=== PATIENT | female | born 1980 | race Caucasian/White ===

== ENCOUNTER 2020-10-22 08:02 | Outpatient (REF) | payer OTHER, SELFPAY ==
--- NOTE | ~2020-10-22 | US_ITS ---
Targeted right breast ultrasound is described in single combined report along with the diagnostic mammography under accession number: [id number].
--- NOTE | ~2020-10-22 | MM_ITS ---
EXAMINATION: MM DIAGNOSTIC DIGITAL BREAST TOMOSYNTHESIS, BILATERAL US DIAGNOSTIC ULTRASOUND BREAST, RIGHT CLINICAL INFORMATION: 40-year-old with intermittent waxing and waning tender palpable fullness upper outer right breast with some extension towards the right subareolar region. Patient breast feeding, approximately 5 months. Prior benign right breast biopsy upper outer quadrant 2016 (Benign breast tissue with stromal fibrosis and fibroadenomatous change). The lifetime risk of breast cancer based on the Tyrer-Cuzick Model is 12%. COMPARISON: Mammography: 01/27/2019, 01/13/2016, 01/10/2016; targeted right breast ultrasound 01/27/2019, 01/10/2016, ultrasound guided right biopsy 01/13/2016. TECHNIQUE: Digital breast tomosynthesis is performed in both the craniocaudal and mediolateral oblique views along with computer-aided detection (CAD). Synthesized 2D images are generated from the tomosynthesis. Ultrasound right breast is targeted to the area of clinical concern outer breast. Grayscale imaging and color Doppler are performed without and with harmonics. Patient is able to point to the area of concern at time of imaging. FINDINGS: The breasts are extremely dense, which lowers the sensitivity of mammography (ACR BI-RADS breast composition Category d). There are no significant masses, abnormal calcifications, or other abnormalities. There is biopsy clip marker mid upper outer quadrant corresponding to the benign biopsy 2016. There is no skin thickening or coarsening of the Saad's ligaments. No focal duct dilatation. The axilla are unremarkable. Ultrasound right breast demonstrates no cystic or solid mass or architectural abnormality. No focal duct dilatation. No skin thickening or edema tracking in soft tissue planes. The lesion sampled in 2016 is not identified. Results are discussed with the patient at time of visit. Patient should be managed based on the clinical impression. If clinically indicated, further evaluation may be considered with surgical consult. Decision to proceed with biopsy should be based on clinical grounds and degree of clinical concern. MM/MM tomosynthesis diagnostic BI IMPRESSION: 1. No mammographic evidence of malignancy or focal inflammatory changes. 2. Unremarkable right breast ultrasound. ASSESSMENT: BI-RADS 1: Negative RECOMMENDATION: 1. Patient should be managed based on the clinical impression. If clinically indicated, further evaluation may be considered with surgical consult. Decision to proceed with biopsy should be based on clinical grounds and degree of clinical concern. 2. Otherwise, routine annual screening mammography, beginning age 40, or earlier as clinical risk factors warrant. This patient's information was entered into a reminder system with a target due date for their next mammogram.
== END 2020-10-22 08:03 | disposition home or self-care (01) ==
LOC: HO.MAMMO 08:02
PROVIDERS: Visit Provider Obstetrics & Gynecology
DX: N64.4 Mastodynia (principal)
CPT/HCPCS: 76642; 77062; 77066

== ENCOUNTER 2021-01-17 08:37 | Outpatient (REF) | payer OTHER, SELFPAY ==
--- NOTE | ~2021-01-17 | US_ITS ---
EXAMINATION: US THYROID CLINICAL INFORMATION: Follow up thyroid nodules. Ultrasound-guided thyroid biopsy 01/15/2020. COMPARISON: None. TECHNIQUE: Linear transducer grayscale and color Doppler examination with attention to the region of the thyroid. FINDINGS: SIZE: Measurements of the thyroid lobes and nodules are given in sagittal, anteroposterior and transverse dimensions respectively. Right Thyroid Lobe: 5.2 x 1.5 x 1.6 cm, volume 6.5 mL. Parenchyma: The gland echotexture is homogeneous. Thyroid vascularity is normal. Left Thyroid Lobe: 5.0 x 1.5 x 1.7 cm, volume 6.7 mL. Parenchyma: The gland echotexture is homogeneous. Thyroid vascularity is normal. Isthmus: 0.2 cm in maximum AP dimension. Estimated total number of nodules greater than or equal to 1 cm: 1. Nutritional Yeast Supervisor nodules are described as follows: 1. Location: Right midpole/lower pole. Size: 1.2 x 0.6 x 0.4 cm, volume 0.15 mL. Nodule characteristics: Composition: Solid (2). Echogenicity: Hypoechoic (2). Shape: Not taller than wide (0). Margins: Ill-defined (0). Echogenic Foci: None (0). ACR TI-RADS total points: 4 ACR TI-RADS category: 4 NODES: No lymphadenopathy is seen in the tissue surrounding the thyroid gland. US/US thyroid IMPRESSION: Solitary thyroid nodule mid to lower pole right lobe. Recommend annual follow-up. ACR TI-RADS RECOMMENDATION REFERENCE: Ultrasound-guided fine-needle aspiration, followup ultrasound, no further follow up. * TR1 (0 point) and TR 2 (2 points): No FNA or follow up * TR3 (3 points): FNA if more than or equal to 2.5 cm in maximum dimension, followup ultrasound in 1, 3 and 5 years if 1.5 to 2.4 cm in maximum dimension. * TR4 (4-6 points): FNA if more than or equal to 1.5 cm in maximum dimension, followup ultrasound in 1, 2, 3 and 5 years if 1 to 1.4 cm in maximum dimension. * TR5 (more than or equal to 7 points): FNA if more than or equal to 1 cm in maximum dimension, followup ultrasound every year for 5 years if 0.5 to 0.9 cm in maximum dimension. * TR3, TR4 or TR5 nodules that are below the size threshold for follow up receive no follow up.
== END 2021-01-17 08:38 | disposition home or self-care (01) ==
LOC: HO.US 08:37
PROVIDERS: PCP Physician Assistant; Visit Provider Internal Medicine Endocrinology, Diabetes & Metabolism
DX: E04.1 Nontoxic single thyroid nodule (principal)
CPT/HCPCS: 76536

== ENCOUNTER → 2021-01-19 09:16 | Outpatient (BNVA) | payer OTHER, SELFPAY | PROVIDERS: Visit Provider Internal Medicine Endocrinology, Diabetes & Metabolism | DX: E04.1 Nontoxic single thyroid nodule (principal) | CPT/HCPCS: 99212 ==

== ENCOUNTER → 2021-10-12 14:31 | Outpatient (BNVA) | payer OTHER, SELFPAY | PROVIDERS: Visit Provider Surgery | DX: R22.2 Localized swelling, mass and lump, trunk (principal) | CPT/HCPCS: 99202 ==

== ENCOUNTER 2022-01-18 15:16 | Outpatient (REF) | payer OTHER, SELFPAY ==
--- NOTE | ~2022-01-18 | US_ITS ---
EXAMINATION: US THYROID CLINICAL INFORMATION: Nontoxic single thyroid nodule. COMPARISON: Thyroid ultrasound 01/17/2021. Ultrasound-guided thyroid biopsy 01/15/2020. CT cervical spine 08/27/2019. TECHNIQUE: Linear transducer grayscale and color Doppler examination with attention to the region of the thyroid. FINDINGS: SIZE: Measurements of the thyroid lobes and nodules are given in sagittal, anteroposterior and transverse dimensions respectively. Right Thyroid Lobe: 5.6 x 1.2 x 1.4 cm, volume 4.9 mL. Previously 5.2 x 1.5 x 1.6 cm, volume 6.5 mL. Parenchyma: The gland echotexture is homogeneous. Thyroid vascularity is increased. Left Thyroid Lobe: 4.9 x 1.4 x 1.4 cm, volume 5.0 mL. Previously 5.0 x 1.5 x 1.7 cm, volume 6.7 mL. Parenchyma: The gland echotexture is homogeneous. Thyroid vascularity is increased. Isthmus: 0.1 cm in maximum AP dimension. Previously 0.2 cm. Estimated total number of nodules greater than or equal to 1 cm: 1. Soiled Linen Distributor nodules are described as follows: 1. Location: Right lateral mid pole. Size: 1.0 x 0.6 x 0.4 cm, volume 0.12 mL. Previously: 1.2 x 0.6 x 0.4 cm, volume 0.15 mL. Nodule characteristics: Composition: Solid/almost completely solid (2). Echogenicity: Hypoechoic (2). Shape: Taller than wide (3). Margins: Ill-defined (0). Echogenic Foci: None (0). ACR TI-RADS total points: 7 Previous: 4 ACR TI-RADS category: 5 Previous: 4 Significant change in size (>/= 20% in 2 dimensions and minimal increase of 2 mm or 50% or greater increase in volume): No Change in features: No Change in ACR TI-RADS risk category: No NODES: No lymphadenopathy is seen in the tissue surrounding the thyroid gland. US/US thyroid IMPRESSION: 1. A continued stable right thyroid lobe nodule is seen, as detailed. Recommend continued thyroid ultrasound surveillance. 2. There is increased thyroid vascularity, which can be associated with thyroiditis. ACR TI-RADS RECOMMENDATION REFERENCE: Ultrasound-guided fine-needle aspiration, followup ultrasound, no further follow up. * TR1 (0 point) and TR 2 (2 points): No FNA or follow up * TR3 (3 points): FNA if more than or equal to 2.5 cm in maximum dimension, followup ultrasound in 1, 3 and 5 years if 1.5 to 2.4 cm in maximum dimension. * TR4 (4-6 points): FNA if more than or equal to 1.5 cm in maximum dimension, followup ultrasound in 1, 2, 3 and 5 years if 1 to 1.4 cm in maximum dimension. * TR5 (more than or equal to 7 points): FNA if more than or equal to 1 cm in maximum dimension, followup ultrasound every year for 5 years if 0.5 to 0.9 cm in maximum dimension. * TR3, TR4 or TR5 nodules that are below the size threshold for follow up receive no follow up.
[2022-01-18 16:41] LABS: Free T4 (Free Thyroxine) 1.05 ng/dL (0.71-1.85); Thyroid Stimulating Hormone 0.64 uIU/mL (0.32-4.0)
== END 2022-01-18 15:17 | disposition home or self-care (01) ==
LOC: HO.US 15:16
PROVIDERS: Absent Provider Internal Medicine Endocrinology, Diabetes & Metabolism; Visit Provider Internal Medicine
DX: E04.1 Nontoxic single thyroid nodule (principal)
CPT/HCPCS: 36415; 76536; 84439; 84443

== ENCOUNTER → 2022-03-22 11:57 | Outpatient (BNVA) | payer OTHER, SELFPAY | PROVIDERS: Visit Provider Physician Assistant | DX: S09.90XA Unspecified injury of head, initial encounter (principal); Y04.2XXA Assault by strike against or bumped into by another person, initial encounter | CPT/HCPCS: 70450; 99204 ==

== ENCOUNTER → 2022-03-24 09:58 | Outpatient (BNVA) | payer OTHER, SELFPAY | PROVIDERS: Visit Provider Internal Medicine | DX: S09.90XA Unspecified injury of head, initial encounter (principal); Y04.2XXA Assault by strike against or bumped into by another person, initial encounter; H53.149 Visual discomfort, unspecified; M54.2 Cervicalgia | CPT/HCPCS: 99214 ==

== ENCOUNTER → 2022-03-29 09:38 | Outpatient (BNVA) | payer OTHER, SELFPAY | PROVIDERS: Visit Provider Internal Medicine Endocrinology, Diabetes & Metabolism | DX: O99.282 Endocrine, nutritional and metabolic diseases complicating pregnancy, second trimester (principal); E04.1 Nontoxic single thyroid nodule; Z3A.17 17 weeks gestation of pregnancy | CPT/HCPCS: 99212 ==

== ENCOUNTER → 2022-03-29 11:31 | Outpatient (BNVA) | payer OTHER, SELFPAY | PROVIDERS: Visit Provider Physician Assistant | DX: S09.90XA Unspecified injury of head, initial encounter (principal); Y04.2XXA Assault by strike against or bumped into by another person, initial encounter; F07.81 Postconcussional syndrome | CPT/HCPCS: 99213 ==

== ENCOUNTER → 2022-04-07 11:25 | Outpatient (BNVA) | payer OTHER, SELFPAY | PROVIDERS: Visit Provider Physician Assistant | DX: S09.90XD Unspecified injury of head, subsequent encounter (principal); Y04.2XXD Assault by strike against or bumped into by another person, subsequent encounter; F07.81 Postconcussional syndrome; R51.9 Headache, unspecified; M25.531 Pain in right wrist | CPT/HCPCS: 73110; 73130; 99215 ==

== ENCOUNTER → 2022-04-20 11:40 | Outpatient (BNVA) | payer OTHER, SELFPAY | PROVIDERS: Visit Provider Physician Assistant | DX: S09.90XD Unspecified injury of head, subsequent encounter (principal); Y04.2XXD Assault by strike against or bumped into by another person, subsequent encounter | CPT/HCPCS: 99214 ==

== ENCOUNTER → 2022-05-19 11:46 | Outpatient (BNVA) | payer OTHER, SELFPAY | PROVIDERS: Visit Provider Physician Assistant | DX: F07.81 Postconcussional syndrome (principal) | CPT/HCPCS: 99214 ==

== ENCOUNTER → 2022-05-31 13:58 | Outpatient (BNVA) | payer OTHER, SELFPAY | PROVIDERS: Visit Provider Physician Assistant | DX: F07.81 Postconcussional syndrome (principal) | CPT/HCPCS: 99214 ==

== ENCOUNTER → 2022-06-01 13:24 | Outpatient (BNVA) | payer OTHER, SELFPAY | PROVIDERS: Visit Provider Nurse Practitioner Family | DX: S06.9XAA Unspecified intracranial injury with loss of consciousness status unknown, initial encounter (principal); R06.83 Snoring; G47.19 Other hypersomnia; G47.9 Sleep disorder, unspecified; G44.309 Post-traumatic headache, unspecified, not intractable; G43.109 Migraine with aura, not intractable, without status migrainosus | CPT/HCPCS: 99202 ==

== ENCOUNTER → 2022-06-14 12:24 | Outpatient (BNVA) | payer OTHER, SELFPAY | PROVIDERS: Visit Provider Physician Assistant | DX: F07.81 Postconcussional syndrome (principal) | CPT/HCPCS: 99213 ==

== ENCOUNTER 2022-06-30 09:00 | Outpatient (RCR) | payer OTHER, SELFPAY ==
--- NOTE | 2022-07-24 10:15 | MHC.PT.DC ---
[facility] [place] Office [place] Office [place] Office [address] Xander Sotelo [address] [phone] F: [phone] F: [phone] F: [phone] F: [phone] Physical Therapy Discharge Report Diagnosis: CONCUSSION, NECK SPRAIN, VERTIGO Date of Surgery: Date of Evaluation: 04/07/22 Date of Discharge: 07/24/22 Treatments to Date: 10 Cancellations to Date: 1 No Shows to Date: 0 Discharge Status: Improved Function Independent with HEP Discharge Summary: aMdai progressed well in PT and is independent with her home program. She has made significant gains and has returned to most of her ADLs independently and anticipates return to work. Electronically signed by: Audelia Miramontes PT, DPT Please sign and return to therapist. Thank you for your referral.
== END 2022-07-24 10:15 | disposition home or self-care (01) ==
LOC: HO.PT 09:00
PROVIDERS: Visit Provider Physician Assistant
DX: S06.9XAD Unspecified intracranial injury with loss of consciousness status unknown, subsequent encounter (principal); R42 Dizziness and giddiness; R25.2 Cramp and spasm
CPT/HCPCS: 97110; 97112; 97140; 97163

== ENCOUNTER → 2022-06-30 09:43 | Outpatient (BNVA) | payer OTHER, SELFPAY | PROVIDERS: Visit Provider Physician Assistant | DX: S06.9X0D Unspecified intracranial injury without loss of consciousness, subsequent encounter (principal); Y04.2XXD Assault by strike against or bumped into by another person, subsequent encounter | CPT/HCPCS: 99213 ==

== ENCOUNTER 2023-05-29 14:23 | Outpatient (AMB) | payer OTHER, SELFPAY ==
--- NOTE | 2023-05-29 14:23 | A.OFFVIS_ITS ---
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 Pt states started 10 years ago but severely worsened 5 years ago w/ 3rd . Now has burning, itching and aching. 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 Pt states she wears athletic type compression pants but no compression socks yet. 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 Complaints include pain over varicosities, swelling of lower extremities, cramping, fatigue, and heaviness of the lower extremities. 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 It is noted more so in right leg. Of note she noticed it after the of her 4 children. She reports that it was extremely painful after the 4th child and has been painful for the last 3 years or so Patient denies any previous venous surgery or injections. Patient denies any history of DVT/ PE. She does report that her maternal grandmother did have a clot Patient denies any history of phlebitis. Trial of compression includes - [id number] They now present for vascular evaluation regarding their varicose veins. PFSH Medical History Subcutaneous mass of back Thyroid nodule Surgical History Hx of knee surgery History of endometrial ablation Family History Father Unknown family medical history Mother No problems noted. Social History Alcohol intake: never Patient Tobacco Use Status: Never used Tobacco Review of Systems Const Reports as per HPI ENT Reports no additional complaints Card Denies chest pain, Denies chest pain at rest and Denies chest pain with activity Resp Denies chest congestion and Denies cough GI Reports no additional complaints Musc Details: pain over varicosities, aching of lower extremities, swelling, cramping, heaviness and tiredness, itching Denies abnormal gait Skin/Breast Reports pruritus and Denies wounds Neuro Reports no additional complaints and Denies abnormal gait Psych Denies no additional complaints Physical Exam Const General: cooperative, healthy appearing and comfortable Orientation/consciousness: oriented to person, oriented to place and oriented to time Neck Carotids: no bruits Chest Chest palpation & inspection: normal inspection of the chest and normal palpation of entire chest wall Resp Effort & Inspection: normal respiratory effort and able to speak in complete sentences Cardio Other: Bilateral palpable dorsalis pedis pulse Rate: regular rate Heart sounds: S1 normal heart sound present and S2 normal heart sound present Peripheral pulses: Peripheral pulses 2+ throughout GI Inspection: Yes normal to inspection Skin Other: +2 edema, large rope-like varicosities greater than 4 mm right medial thigh and calf CEAP Classification C4 - skin color changes Ep - Etiology Primary As - superficial veins P - reflux General skin exam: dry skin Neuro General: oriented to person, oriented to place and oriented to time Extrem Right lower extremity: full ROM, normal capillary refill and edema Left lower extremity: full ROM, normal capillary refill and edema Psych Mental Status: mental status grossly normal Assessment & Plan Assessment & Plan (1) Varicose veins of right lower extremity with inflammation: Code(s): I83.11 - Varicose veins of right lower extremity with inflammation Plan: In short, the patient has evidence of venous insufficiency. I have discussed the pathophysiology with the patient. In addition I have provided informational material regarding venous disease to the patient. We have discussed conservative measures including compression, elevation, and exercise. I have also provided a handout regarding appropriate use of compression stockings and where to purchase good compression stockings as well. I have taken the liberty of ordering venous insufficiency testing with the patient. They will follow up with me after testing. The patient had an opportunity to ask questions regarding the treatment plan. All questions were answered. Imaging studies, laboratory studies and physical exam results were discussed and reviewed in detail. No major barriers to unde rstanding were identified. The patient expressed understanding and agreement with the above treatment plan. The patient is aware they should contact our office by phone for worsening of the current condition or the appearance of new symptoms. Thank you for allowing me to participate in the vascular care of this patient. If you have any questions or concerns regarding the treatment for the above condition please do not hesitate to contact me. The office telephone contact is [phone]. This note is constructed using voice recognition software. While every effort has been made to ensure accuracy, commercial construction superintendent errors may have been included. Thank you for allowing me to participate in the care of your patient. Yours sincerely, Donovan Lauren MD, FACS, R.P.V.I. Orders: Orders US venous duplex LE BI 1 Week I83.11 - Varicose veins of right lower extremity with inflammation Coding Level of Care Code New Pt Level 4 (24534) Diagnoses Varicose veins of right lower extremity with inflammation I83.11
== END 2023-05-29 15:00 | disposition home or self-care (01) ==
PROVIDERS: Visit Provider Surgery Vascular Surgery
DX: I83.11 Varicose veins of right lower extremity with inflammation (principal)
CPT/HCPCS: 99203

== ENCOUNTER → 2023-05-29 14:23 | Outpatient (BNVA) | payer OTHER, SELFPAY | PROVIDERS: Visit Provider Surgery Vascular Surgery | DX: I83.11 Varicose veins of right lower extremity with inflammation (principal) | CPT/HCPCS: 99202 ==

== ENCOUNTER 2023-06-15 12:59 | Outpatient (REF) | payer OTHER, SELFPAY ==
--- NOTE | ~2023-06-15 | US_ITS ---
EXAMINATION: US LOWER EXTREMITY VENOUS (REFLUX EXAM), BILATERAL CLINICAL INDICATION: Varicose veins COMPARISON: None. TECHNIQUE: Color flow triplex imaging and compression Doppler was performed to evaluate both the deep and the superficial systems bilaterally. To evaluate the superficial system, the examination was performed in the upright position. Color-flow Doppler ultrasound and compression ultrasound were utilized. In addition, maneuvers were utilized to demonstrate reflux. FINDINGS: 1. DEEP VENOUS ULTRASOUND OF THE RIGHT LOWER EXTREMITY: Common Femoral Vein: Compressible, normal respiratory variation and augmented flow. Femoral Vein: Compressible, normal color flow and augmentation. Popliteal Vein: Compressible, normal augmentation. Deep Reflux: Reflux in the common femoral vein at 708ms. There is no evidence of a Knight's cyst. 2. SUPERFICIAL ULTRASOUND WITH DOPPLER OF RIGHT LOWER EXTREMITY: GREAT SAPHENOUS VEIN: Saphenofemoral Junction: 0.6 cm; Reflux: 0 ms Proximal Thigh: 0.3 cm; Reflux: 2580 ms Mid Thigh: 0.4 cm; Reflux: 2376 ms Above Knee: 0.2 cm; Reflux: 0 ms At Knee: 0.2 cm; Reflux: 0 ms Below Knee: 0.1 cm; Reflux: 428 ms Mid Calf: 0.2 cm; Reflux: 2840 ms Ankle: 0.2 cm; Reflux: 0 ms DUPLICATED MEDIAL GREAT SAPHENOUS VEIN: Diameter: None imaged Reflux: NA DUPLICATED LATERAL GREAT SAPHENOUS VEIN: Proximal: 0.2 cm; Reflux: 0 ms Distal: 0.1 cm; Reflux: 0 ms SMALL SAPHENOUS VEIN: Proximal: 0.1 cm; Reflux: 0 ms Distal: 0.1 cm; Reflux: 0 ms VEIN OF GIACOMINI: Size: NA Reflux: NA PERFORATORS: Location: None imaged Size: NA Reflux: NA VARICOSITIES: Location: None imaged Size: NA Reflux: NA 3. DEEP VENOUS ULTRASOUND OF THE LEFT LOWER EXTREMITY: Common Femoral Vein: Compressible, normal respiratory variation and augmented flow. Femoral Vein: Compressible, normal color flow and augmentation. Popliteal Vein: Compressible, normal augmentation. Deep Reflux: There is no evidence of reflux in the deep system in either the common femoral vein, superficial femoral or the popliteal vein. There is no evidence of a Knight's cyst. 4. SUPERFICIAL ULTRASOUND WITH DOPPLER OF LEFT LOWER EXTREMITY: GREAT SAPHENOUS VEIN: Saphenofemoral Junction: 0.7 cm; Reflux: 0 ms Proximal Thigh: 0.4 cm; Reflux: 0 ms Mid Thigh: 0.2 cm; Reflux: 0 ms Above Knee: 0.2 cm; Reflux: 0 ms At Knee: 0.2 cm; Reflux: 2492 ms Below Knee: 0.1 cm; Reflux: 0 ms Mid Calf: 0.1 cm; Reflux: 0 ms Ankle: 0.1 cm; Reflux: 0 ms DUPLICATED MEDIAL GREAT SAPHENOUS VEIN: Diameter: None imaged Reflux: NA DUPLICATED LATERAL GREAT SAPHENOUS VEIN: Diameter: None imaged Reflux: NA SMALL SAPHENOUS VEIN: Proximal: 0.2 cm; Reflux: 0 ms Distal: 0.2 cm; Reflux: 0 ms VEIN OF GIACOMINI: Size: NA Reflux: NA PERFORATORS: Location: None imaged Size: NA Reflux: NA VARICOSITIES: Location: Multiple varicose veins left thigh Size: 0.2cm Reflux: 2568ms US/US venous duplex LE BI IMPRESSION: 1. Right: Severe reflux in the right great saphenous vein. 2. Left: No significant reflux in the left great saphenous vein. 3. Right small saphenous venous insufficiency. 4. Multiple refluxing varicose veins in the left thigh.
== END 2023-06-15 13:00 | disposition home or self-care (01) ==
LOC: HO.US 12:59
PROVIDERS: Visit Provider Surgery Vascular Surgery
DX: I83.11 Varicose veins of right lower extremity with inflammation (principal)
CPT/HCPCS: 93970

== ENCOUNTER 2023-06-26 10:06 | Outpatient (AMB) | payer OTHER, SELFPAY ==
--- NOTE | 2023-06-26 10:06 | MHC.OFFVIS ---
Intake Vital Signs 06/26/23 10:07 Height 5 ft 1 in Weight 112 lb 6 oz BMI 21.2 BP 98/60 Blood Pressure Location Rt brachial Position Sitting Pulse 70 Pulse Source Pulse Oximeter Pulse Oximetry (%) 99 Oxygen Delivery Method Room Air Intake Visit Reasons: Follow up 06/15 [facility] Intake Note: Pt presents to the office today for a follow up [facility] 06/15. Pt states she is feeling well. Pt states she gets frequent leg pain but states the right leg is the worse. Pt states she also gets numbness and tingling in her legs and states she gets cold sensations in both of her feet. Pt states she does get purple and blue coloration in her feet sometimes. Allergies zolpidem [From AMBIEN] Allergy (Intermediate, Verified 06/26/23 10:09) HIVES acetaminophen [Vicodin] Adverse Reaction (Unknown, Verified 06/26/23 10:09) nausea hydrocodone [Vicodin] Adverse Reaction (Unknown, Verified 06/26/23 10:09) nausea From VICODIN Allergy (Severe, Uncoded 06/26/23 10:09) VOMITING, DRY HEAVES latex Allergy (Unknown, Uncoded 06/26/23 10:09) Unknown Vicodin Allergy (Unknown, Uncoded 06/26/23 10:09) FAINTING AND VOMITING HPI Follow up 06/15 [facility] HPI Details Very pleasant 42-year-old female presents for follow-up regarding venous insufficiency. She reports that the right has been more been issue than the left. She has significant varicosities throughout the right lower extremity. She is the mother of 4 children the hand just of which is 3. 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 It has been affecting her activities of daily living. She now presents for follow-up with venous insufficiency testing. [facility] Medical History Subcutaneous mass of back Thyroid nodule Surgical History Hx of knee surgery History of endometrial ablation Family History Father Unknown family medical history Mother No problems noted. Social History Alcohol intake: never Patient Tobacco Use Status: Never used Tobacco Review of Systems Const Reports as per HPI ENT Reports no additional complaints Card Denies chest pain, Denies chest pain at rest and Denies chest pain with activity Resp Denies chest congestion and Denies cough GI Reports no additional complaints Musc Details: pain over varicosities, aching of lower extremities, swelling, cramping, heaviness and tiredness, itching Denies abnormal gait Skin/Breast Reports pruritus and Denies wounds Neuro Reports no additional complaints and Denies abnormal gait Psych Denies no additional complaints Physical Exam Vital Signs: Last Vital Signs Pulse 70 06/26/23 10:07 BP 98/60 06/26/23 10:07 Pulse Ox 99 06/26/23 10:07 Oxygen Delivery Method Room Air 06/26/23 10:07 BMI result Body Mass Index 21.2 Const General: cooperative, healthy appearing and comfortable Orientation/consciousness: oriented to person, oriented to place and oriented to time Neck Carotids: no bruits Chest Chest palpation & inspection: normal inspection of the chest and normal palpation of entire chest wall Resp Effort & Inspection: normal respiratory effort and able to speak in complete sentences Cardio Rate: regular rate Heart sounds: S1 normal heart sound present and S2 normal heart sound present Peripheral pulses: Peripheral pulses 2+ throughout GI Inspection: Yes normal to inspection Skin Other: +2 edema, large rope-like varicosities greater than 4 mm right medial thigh and calf CEAP Classification C4 - skin color changes Ep - Etiology Primary As - superficial veins P - reflux General skin exam: dry skin Neuro General: oriented to person, oriented to place and oriented to time Extrem Right lower extremity: full ROM, normal capillary refill and edema Left lower extremity: full ROM, normal capillary refill and edema Psych Mental Status: mental status grossly normal Results Reviewed Results Reviewed: Brief summary of venous insufficiency testing is as follows: right great saphenous vein: Positive right small saphenous vein: negative right accessory vein: none present left great saphenous vein: negative left small saphenous vein: negative left accessory vein: none present Please note there is no evidence of any venous aneurysms or significant tortuosity Assessment & Plan Assessment & Plan (1) Varicose veins of right lower extremity with inflammation: Code(s): I83.11 - Varicose veins of right lower extremity with inflammation Plan: This patient has varicose veins with inflammation. They continue to be a source of discomfort for the patient. The patient has tried conservative treatment with compression, leg elevation and exercise program for over 3 months time. They have been compliant with all treatment. This has provided minimal relief for the patient. I do not anticipate this course of treatment will alter the underlying etiology. The patient has been scheduled for lower extremity venous treatment inclusive of --- right great saphenous vein Cyanoacralate ablation. Risks, benefits, and complications of this procedure has been discussed in detail with the patient including but not limited to bleeding, infection, and the development of a DVT. The patient has demonstrated a clear understanding and has consented. We will schedule the patient as soon as possible. Thank you for allowing us to participate in this patient's care. If there are any questions or concerns please do not hesitate to contact us. Coding Level of Care Code Est Pt Level 4 (45125) Diagnoses Varicose veins of right lower extremity with inflammation I83.11
[2023-06-26 10:07] VITALS: BP 98/60; PULSE 70; O2SAT 99; BMI 21.2
== END 2023-06-26 10:38 | disposition home or self-care (01) ==
PROVIDERS: Visit Provider Surgery Vascular Surgery
DX: I83.11 Varicose veins of right lower extremity with inflammation (principal)
CPT/HCPCS: 99214

== ENCOUNTER → 2023-06-26 10:06 | Outpatient (BNVA) | payer OTHER, SELFPAY | PROVIDERS: Visit Provider Surgery Vascular Surgery | DX: I83.11 Varicose veins of right lower extremity with inflammation (principal) | CPT/HCPCS: 99212 ==

== ENCOUNTER 2023-07-27 12:27 | Outpatient (AMB) | payer OTHER, SELFPAY ==
[2023-07-27 13:18] VITALS: BMI 21.2
--- NOTE | 2023-07-27 13:18 | MHC.OFFVIS ---
Intake Vital Signs 07/27/23 13:18 Height 5 ft 1 in Weight 112 lb BMI 21.2 Intake Visit Reasons: Right GSV Venaseal Accompanied by: Self / Same As Patient Allergies zolpidem [From AMBIEN] Allergy (Intermediate, Verified 07/27/23 13:19) HIVES acetaminophen [Vicodin] Adverse Reaction (Unknown, Verified 07/27/23 13:19) nausea hydrocodone [Vicodin] Adverse Reaction (Unknown, Verified 07/27/23 13:19) nausea From VICODIN Allergy (Severe, Uncoded 07/27/23 13:19) VOMITING, DRY HEAVES latex Allergy (Unknown, Uncoded 07/27/23 13:19) Unknown Vicodin Allergy (Unknown, Uncoded 07/27/23 13:19) FAINTING AND VOMITING PFSH Medical History Subcutaneous mass of back Thyroid nodule Surgical History Hx of knee surgery History of endometrial ablation Family History Father Unknown family medical history Mother No problems noted. Social History Alcohol intake: never Patient Tobacco Use Status: Never used Tobacco Physical Exam Vital Signs: BMI result Body Mass Index 21.2 Office Procedures Vascular Office Procedure Details Details: Diagnosis: Right Leg varicose veins with inflammation Procedure: Endovenous Ablation of the right Great Saphenous Vein with VenaSeal Closure System Anesthesia: Local infiltration 5 cc, Estimated Blood Loss: min Specimen: none Duplex ultrasound was used to map out the insufficient saphenous vein, and access was determined and marked on the overlying skin. The depth and diameter of the vein(s) to be treated was documented. The patient was placed supine on the procedure table and the leg was prepped and draped using sterile technique. Ultasound guidance was again used to localize the access site. 1% lidocaine was injected as a local anesthetic in the subcutaneous tissues at the target location in the GSV in the lower leg. Using ultrasound guidance, access was gained at this location with the 19 gauge thin walled access needle and followed by introduction of a short guidewire, location confirmed with ultrasound. A small, 3 mm incision was made at the access site to allow for introduction and placement of the 7 Fr x7cm introducer/dilator. The dilator and guidewire were removed. The 0.035 guidewire from the VenaSeal kit was then introduced and positioned at the saphenofemoral junction using ultrasound guidance. The 80 cm 7 Fr introducer sheath/dilator was positioned 5cm from the saphenofemoral junction. The guidewire and dilator were removed, and the remaining sheath was flushed with sterile saline, with the syringe remaining in place prior to the next steps. The cyanoacrylate adhesive was precisely primed into the 5 F delivery catheter and this catheter/syringe combination was attached within the dispenser gun. This assembly was introduced through the 7F sheath and positioned 5 cm caudal of the saphenofemoral junction under ultrasound guidance. The steps from the IFU were followed for dispensing amounts, locations and compression times, 2 aliquots proximally with 3 minutes of compression, and 1 aliquot every 3 cm distally with 30 sec of compression along the course of the vessel. Following the last injection and compression sequence, the catheter and introducer sheath were pulled out from the access site. Hemostasis was achieved with manual compression and an adhesive bandage was applied to the incision. Ultrasound confirmed complete coaptation and closure of the treated segments of the GSV, and the absence of any DVT at the saphenofemoral junction. Treatment time was approximately 6 minutes and the vein length treated was 30 cm. The drapes were removed and the patient cleaned and prepared for discharge. Post op ultrasound check is scheduled for 48-72 hours and the patient was given written post-op instructions. 40198 - Endoven Ther Chem Adhes 1st All charges added?: Procedure code (CPT) selection complete Assessment & Plan Assessment & Plan (1) Varicose veins of right lower extremity with inflammation: Comment: 07/27/2023 - right great saphenous vein Cyanoacralate ablation Code(s): I83.11 - Varicose veins of right lower extremity with inflammation Plan: See op note Coding Level of Care Code Procedure Only Diagnoses Varicose veins of right lower extremity with inflammation I83.11 CPT Codes Details - Vascular 3: [id number] - Endoven Ther Chem Adhes 1st ([id number])
== END 2023-07-27 15:25 | disposition home or self-care (01) ==
PROVIDERS: Visit Provider Surgery Vascular Surgery
DX: I83.11 Varicose veins of right lower extremity with inflammation (principal)
CPT/HCPCS: 36482

== ENCOUNTER → 2023-07-27 12:27 | Outpatient (BNVA) | payer OTHER, SELFPAY | PROVIDERS: Visit Provider Surgery Vascular Surgery | DX: I83.11 Varicose veins of right lower extremity with inflammation (principal) | CPT/HCPCS: 36482 ==

== ENCOUNTER 2023-07-30 09:24 | Outpatient (REF) | payer OTHER, SELFPAY ==
--- NOTE | ~2023-07-30 | US_ITS ---
EXAMINATION: US VENOUS ULTRASOUND WITH DOPPLER LOWER EXTREMITY, RIGHT CLINICAL INFORMATION: Pain in right leg COMPARISON: None available. TECHNIQUE: Ultrasound of the deep veins is performed from the hip to the calf with compression sonography and color and pulse Doppler assessment. Spectral analysis with color-flow imaging is performed. FINDINGS: Patient is status post venous field with thrombus visualized in the greater saphenous vein approximately 0.78 cm from greater saphenous/superficial femoral venous junction. The common femoral, superficial proximal, mid and distal, popliteal, posterior tibial and peroneal veins are patent. The soft tissues are normal. There is no Knight's cyst. US/US venous duplex LE RT IMPRESSION: There is thrombus visualized in the greater saphenous vein status post Venaseal procedure. Rest of the right lower extremity venous study is unremarkable with no DVT seen.
== END 2023-07-30 09:25 | disposition home or self-care (01) ==
LOC: HO.HMGCX 09:24
PROVIDERS: Visit Provider Surgery Vascular Surgery
DX: M79.604 Pain in right leg (principal); Z98.890 Other specified postprocedural states
CPT/HCPCS: 93971

== ENCOUNTER 2023-08-23 15:06 | Outpatient (AMB) | payer OTHER, SELFPAY ==
[2023-08-23 15:11] VITALS: BMI 21.2
--- NOTE | 2023-08-23 15:11 | A.OFFVIS_ITS ---
Intake Vital Signs 08/23/23 15:11 Height 5 ft 1 in Weight 112 lb BMI 21.2 Intake Visit Reasons: 2 week follow up right leg venaseal Intake Note: 2 week follow up Right GSV Venaseal 07/27/23, Pt states that she still has large rope like VV over Right LE and a large, painful VV on Left thigh area. Accompanied by: Self / Same As Patient Allergies zolpidem [From AMBIEN] Allergy (Intermediate, Verified 08/23/23 15:16) HIVES acetaminophen [Vicodin] Adverse Reaction (Unknown, Verified 08/23/23 15:16) nausea hydrocodone [Vicodin] Adverse Reaction (Unknown, Verified 08/23/23 15:16) nausea From VICODIN Allergy (Severe, Uncoded 08/23/23 15:16) VOMITING, DRY HEAVES latex Allergy (Unknown, Uncoded 08/23/23 15:16) Unknown Vicodin Allergy (Unknown, Uncoded 08/23/23 15:16) FAINTING AND VOMITING HPI 2 week follow up right leg venaseal HPI Details Very pleasant 43-year-old female presents for follow-up status post right great saphenous vein Cyanoacralate ablation. Reports no significant postprocedure discomfort. In general varicosities have decreased. She does have still large venous clusters in the thigh and calf. They have been a source of pain and discomfort for her. 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 Social History Alcohol intake: never Patient Tobacco Use Status: Never used Tobacco Review of Systems Const Reports as per HPI ENT Reports no additional complaints Card Denies chest pain, Denies chest pain at rest and Denies chest pain with activity Resp Denies chest congestion and Denies cough GI Reports no additional complaints Musc Details: pain over varicosities, aching of lower extremities, swelling, cramping, heaviness and tiredness, itching Denies abnormal gait Skin/Breast Reports pruritus and Denies wounds Neuro Reports no additional complaints and Denies abnormal gait Psych Denies no additional complaints Physical Exam Vital Signs: BMI result Body Mass Index 21.2 Const General: cooperative, healthy appearing and comfortable Orientation/consciousness: oriented to person, oriented to place and oriented to time Neck Carotids: no bruits Chest Chest palpation & inspection: normal inspection of the chest and normal palpation of entire chest wall Resp Effort & Inspection: normal respiratory effort and able to speak in complete sentences Cardio Rate: regular rate Heart sounds: S1 normal heart sound present and S2 normal heart sound present Peripheral pulses: Peripheral pulses 2+ throughout GI Inspection: Yes normal to inspection Skin Other: +2 edema, large rope-like varicosities greater than 4 mm right calf and thigh CEAP Classification C4 - skin color changes Ep - Etiology Primary As - superficial veins P - reflux General skin exam: dry skin Neuro General: oriented to person, oriented to place and oriented to time Extrem Right lower extremity: full ROM, normal capillary refill and edema Left lower extremity: full ROM, normal capillary refill and edema Psych Mental Status: mental status grossly normal Assessment & Plan Assessment & Plan (1) Varicose veins of right lower extremity with inflammation: Comment: 07/27/2023 - right great saphenous vein Cyanoacralate ablation Code(s): I83.11 - Varicose veins of right lower extremity with inflammation Plan: This patient has varicose veins with inflammation. They continue to be a source of discomfort for the patient. The patient has tried conservative treatment with compression, leg elevation and exercise program for over 3 months time. They have been compliant with all treatment. This has provided minimal relief for the patient. I do not anticipate this course of treatment will alter the underlying etiology. The patient has been scheduled for lower extremity venous treatment inclusive of --- right leg microphlebectomy. Risks, benefits, and complications of this procedure has been discussed in detail with the patient including but not limited to bleeding, infection, and the development of a DVT. The patient has demonstrated a clear understanding and has consented. We will schedule the patient as soon as possible. Thank you for allowing us to participate in this patient's care. If there are any questions or concerns please do not hesitate to contact us. Coding Level of Care Code Est Pt Level 4 (66176) Diagnoses Varicose veins of right lower extremity with inflammation I83.11
== END 2023-08-23 15:31 | disposition home or self-care (01) ==
PROVIDERS: Visit Provider Surgery Vascular Surgery
DX: I83.11 Varicose veins of right lower extremity with inflammation (principal)
CPT/HCPCS: 99214

== ENCOUNTER → 2023-08-23 15:06 | Outpatient (BNVA) | payer OTHER, SELFPAY | PROVIDERS: Visit Provider Surgery Vascular Surgery | DX: I83.11 Varicose veins of right lower extremity with inflammation (principal) | CPT/HCPCS: 99212 ==

== ENCOUNTER 2023-11-02 09:33 | Outpatient (AMB) | payer OTHER, SELFPAY ==
--- NOTE | 2023-11-02 09:59 | MHC.OFFVIS ---
Intake Visit Reasons: Right LE Micro Accompanied by: Self / Same As Patient Allergies zolpidem [From AMBIEN] Allergy (Intermediate, Verified 11/02/23 10:00) HIVES acetaminophen [Vicodin] Adverse Reaction (Unknown, Verified 11/02/23 10:00) nausea hydrocodone [Vicodin] Adverse Reaction (Unknown, Verified 11/02/23 10:00) nausea From VICODIN Allergy (Severe, Uncoded 08/23/23 15:16) VOMITING, DRY HEAVES latex Allergy (Unknown, Uncoded 08/23/23 15:16) Unknown Vicodin Allergy (Unknown, Uncoded 08/23/23 15:16) FAINTING AND VOMITING PFSH Medical History Subcutaneous mass of back Thyroid nodule Surgical History Hx of knee surgery History of endometrial ablation Family History Father Unknown family medical history Mother No problems noted. Social History Alcohol intake: never Patient Tobacco Use Status: Never used Tobacco Office Procedures Vascular Office Procedure Details Details: Diagnosis: Right Leg varicose veins with inflammation Procedure: Right leg Microphlebectomy Anesthesia: Local Infiltration 20 cc, Tumescent: 0 cc. Varicose veins were marked in the standing position on the right leg and the patient was then placed in the supine position. The right lower extremity was prepared and draped to allow knee flexion in the sterile field. The patient had large superficial varicose veins with significant symptoms of pain. It was therefore determined to perform microphlebectomies of the clusters of varicose veins. The patient had bulging varicose veins which were previously marked in the standing position. A small stab incision was made longitudinally directly overlying the varicose vein in the calf and the varicose vein was grasped with a hemostat aided by a vein hook. It was then dissected as far proximally and distally as possible and avulsed. A total of 10 stab incisions were made and the procedure of stab phlebectomies was repeated 10 times. Hemostasis was checked and stab incision sites were closed with steri-strips and sterile dressing was given with gauze and krilex wrap followed by an miguel bandage. There were no complications and blood loss was minimal. Post-Op instructions were given and a follow-up appointment was recommended. [id number] - Phleb Veins, Extrem - up to 20 All charges added?: Procedure code (CPT) selection complete Assessment & Plan Assessment & Plan (1) Varicose veins of right lower extremity with inflammation: Comment: 07/27/2023 - right great saphenous vein Cyanoacralate ablation 11/02/2023 - right leg microphlebectomy Code(s): I83.11 - Varicose veins of right lower extremity with inflammation Category: Medical Plan: See op note Coding Level of Care Code Procedure Only Diagnoses Varicose veins of right lower extremity with inflammation I83.11 CPT Codes Details - Vascular 5: 95471 - Phleb Veins, Extrem - up to 20 ([id number])
== END 2023-11-02 11:03 | disposition home or self-care (01) ==
PROVIDERS: Visit Provider Surgery Vascular Surgery
DX: I83.11 Varicose veins of right lower extremity with inflammation (principal)
CPT/HCPCS: 37765

== ENCOUNTER → 2023-11-02 09:33 | Outpatient (BNVA) | payer OTHER, SELFPAY | PROVIDERS: Visit Provider Surgery Vascular Surgery | DX: I83.11 Varicose veins of right lower extremity with inflammation (principal) | CPT/HCPCS: 37765 ==

== ENCOUNTER 2023-11-15 15:19 | Outpatient (AMB) | payer OTHER, SELFPAY ==
--- NOTE | 2023-11-15 15:20 | A.OFFVIS_ITS ---
Intake Visit Reasons: 2 week follow up Left Micro 11/02/23 Intake Note: Patient presents for s/p left micro performed on 11/02/23. States she has a lot of bruising and has a steri strip over a stitch. Also has a spot on her leg that is achey believes it is an incision bump Allergies zolpidem [From AMBIEN] Allergy (Intermediate, Verified 11/15/23 15:23) HIVES acetaminophen [Vicodin] Adverse Reaction (Unknown, Verified 11/15/23 15:23) nausea hydrocodone [Vicodin] Adverse Reaction (Unknown, Verified 11/15/23 15:23) nausea From VICODIN Allergy (Severe, Uncoded 08/23/23 15:16) VOMITING, DRY HEAVES latex Allergy (Unknown, Uncoded 08/23/23 15:16) Unknown Vicodin Allergy (Unknown, Uncoded 08/23/23 15:16) FAINTING AND VOMITING HPI HPI 2 week follow up Left Micro 11/02/23: Details: Very pleasant 43-year-old female presents for follow-up status post right microphlebectomy. She did have a fair amount of postoperative bruising. Overall does report that the swelling and discomfort of the right leg have improved. She is now concerned about her left lower extremity. She now presents for follow-up. [facility] Medical History Subcutaneous mass of back Thyroid nodule Surgical History Hx of knee surgery History of endometrial ablation Family History Father Unknown family medical history Mother No problems noted. Social History Alcohol intake: never Patient Tobacco Use Status: Never used Tobacco Review of Systems Const Reports as per HPI ENT Reports no additional complaints Card Denies chest pain, Denies chest pain at rest and Denies chest pain with activity Resp Denies chest congestion and Denies cough GI Reports no additional complaints Musc Details: pain over varicosities, aching of lower extremities, swelling, cramping, heaviness and tiredness, itching Denies abnormal gait Skin/Breast Reports pruritus and Denies wounds Neuro Reports no additional complaints and Denies abnormal gait Psych Denies no additional complaints Physical Exam Const General: cooperative, healthy appearing and comfortable Orientation/consciousness: oriented to person, oriented to place and oriented to time Neck Carotids: no bruits Chest Chest palpation & inspection: normal inspection of the chest and normal palpation of entire chest wall Resp Effort & Inspection: normal respiratory effort and able to speak in complete sentences Cardio Rate: regular rate Heart sounds: S1 normal heart sound present and S2 normal heart sound present Peripheral pulses: Peripheral pulses 2+ throughout GI Inspection: Yes normal to inspection Skin Other: +2 edema, large rope-like varicosities greater than 4 mm left thigh and calf CEAP Classification C4 - skin color changes Ep - Etiology Primary As - superficial veins P - reflux General skin exam: dry skin Neuro General: oriented to person, oriented to place and oriented to time Extrem Right lower extremity: full ROM, normal capillary refill and edema Left lower extremity: full ROM, normal capillary refill and edema Psych Mental Status: mental status grossly normal Assessment & Plan Assessment & Plan (1) Varicose veins of right lower extremity with inflammation: Comment: 07/27/2023 - right great saphenous vein Cyanoacralate ablation 11/02/2023 - right leg microphlebectomy Code(s): I83.11 - Varicose veins of right lower extremity with inflammation Category: Medical Plan: Will treat left leg (2) Varicose veins of left lower extremity with inflammation: Code(s): I83.12 - Varicose veins of left lower extremity with inflammation Category: Medical Plan: This patient has varicose veins with inflammation. They continue to be a source of discomfort for the patient. The patient has tried conservative treatment with compression, leg elevation and exercise program for over 3 months time. They have been compliant with all treatment. This has provided minimal relief for the patient. I do not anticipate this course of treatment will alter the underlying etiology. The patient has been scheduled for lower extremity venous treatment inclusive of --- left leg microphlebectomy. Risks, benefits, and complications of this procedure has been discussed in detail with the patient including but not limited to bleeding, infection, and the development of a DVT. The patient has demonstrated a clear understanding and has consented. We will schedule the patient as soon as possible. Thank you for allowing us to participate in this patient's care. If there are any questions or concerns please do not hesitate to contact us. Coding Level of Care Code Est Pt Level 4 (73539) Diagnoses Varicose veins of right lower extremity with inflammation I83.11 Varicose veins of left lower extremity with inflammation I83.12
== END 2023-11-15 15:42 | disposition home or self-care (01) ==
PROVIDERS: Visit Provider Surgery Vascular Surgery
DX: I83.11 Varicose veins of right lower extremity with inflammation (principal); I83.12 Varicose veins of left lower extremity with inflammation
CPT/HCPCS: 99214

== ENCOUNTER → 2023-11-15 15:19 | Outpatient (BNVA) | payer OTHER, SELFPAY | PROVIDERS: Visit Provider Surgery Vascular Surgery | DX: I83.12 Varicose veins of left lower extremity with inflammation (principal); I83.11 Varicose veins of right lower extremity with inflammation; Z98.890 Other specified postprocedural states | CPT/HCPCS: 99212 ==